=== PATIENT | female | born 1970 | race Two or more races ===

== ENCOUNTER 2018-12-25 02:34 | Emergency (ER) | payer SELFPAY ==
[~2018-12-25] VITALS: Ht 165.1 cm; Wt 79.4 kg
[2018-12-25] MEDS ORDERED: SODIUM CHLORIDE 0.9% 2,000 ML IV ONE (07:01)
[2018-12-25 07:05] VITALS: BP 97/54
[2018-12-25] MEDS ORDERED: ACETAMINOPHEN 500 MG TAB PO ONE (08:00)
[2018-12-25] MEDS ORDERED: HYDROcodone-ACET 5/325MG TAB PO ONE (08:00)
[2018-12-25 08:24] LABS: Urine Bacteria NONE SEEN /hpf (None Seen); Urine Blood Negative /uL (Negative); Urine Mucus FEW (None Seen); Urine Specific Gravity 1.039 (1.001-1.035); Urine WBC 10 /hpf (0 - 5)
[2018-12-25] MEDS ORDERED: KETOROLAC TROMETH 15 mg/ml 1ML VL IV ONE (08:30)
[2018-12-25] MEDS ORDERED: cefTRIAXone 1GM/50ML D5W 50 ML IV ONE (08:30)
== END 2018-12-25 09:30 | disposition home or self-care (01) ==
LOC: ER 02:37
DX: R51 Headache (principal); N39.0 Urinary tract infection, site not specified
CPT/HCPCS: 70450; 81001; 87086; 96365; 96375; 99284; J0696; J1885; J7030

== ENCOUNTER 2019-05-24 14:51 | Emergency (ER) | payer MEDICAID ==
[~2019-05-24] VITALS: Ht 165.1 cm; Wt 79.8 kg
[2019-05-24 15:45] VITALS: BP 127/65
[2019-05-24] MEDS ORDERED: KETOROLAC TROMETH 60MG/2ML VIAL IM ONE (16:30)
== END 2019-05-24 16:57 | disposition home or self-care (01) ==
LOC: ER 15:02
DX: S39.012A Strain of muscle, fascia and tendon of lower back, initial encounter (principal); W17.89XA Other fall from one level to another, initial encounter; Y93.89 Activity, other specified; Y92.89 Other specified places as the place of occurrence of the external cause; Y99.8 Other external cause status
CPT/HCPCS: 72100; 72220; 96372; 99283; J1885